=== PATIENT | male | born 1955 | race Caucasian/White ===

== ENCOUNTER → 2023-10-03 10:56 | Outpatient (REF) | payer OTHER, SELFPAY ==
[2023-10-03 13:18] LABS: Blood Urea Nitrogen 32 mg/dl (9-20); Calcium 9.5 mg/dl (8.4-10.2); Carbon Dioxide 22 mmol/L (22-30); Chloride 105 mmol/L (98-107); Glucose 94 mg/dl (70-99); Potassium 4.6 mmol/L (3.5-5.1); Sodium 137 mmol/L (135-145); eGFR > 60.00
== END ==
LOC: HWLAB 10:56
PROVIDERS: ATTENDING PHYSICIAN Thoracic Surgery (Cardiothoracic Vascular Surgery); OTHER PHYSICIAN Internal Medicine Cardiovascular Disease; REFERRING PHYSICIAN Internal Medicine Cardiovascular Disease
DX: I71.21 Aneurysm of the ascending aorta, without rupture (principal); Q23.1 Congenital insufficiency of aortic valve; Z01.818 Encounter for other preprocedural examination
CPT/HCPCS: 36415; 80048

== ENCOUNTER → 2023-10-09 13:27 | Outpatient (REF) | payer OTHER, SELFPAY | LOC: HWRAD 13:27 | PROVIDERS: ATTENDING PHYSICIAN Thoracic Surgery (Cardiothoracic Vascular Surgery); OTHER PHYSICIAN Internal Medicine Endocrinology, Diabetes & Metabolism; REFERRING PHYSICIAN Internal Medicine Cardiovascular Disease | DX: I71.21 Aneurysm of the ascending aorta, without rupture (principal); Z01.818 Encounter for other preprocedural examination; Q23.1 Congenital insufficiency of aortic valve | CPT/HCPCS: 71275; 74174; Q9967 ==

== ENCOUNTER 2023-10-11 07:22 | Day surgery (SDC) | payer OTHER, SELFPAY ==
[2023-10-01 08:39] VITALS: BMI 29.1
--- NOTE | 2023-10-01 14:01 | HPS.HSE ---
Family Physician
-
Family Physician: NOT KNOW UNKNOWN - PT DOES
Chief Complaint
-
Bicuspid aortic valve. Aortic regurgitation.
History of Present Illness
The patient is a 68 year old male presenting today for aortic regurgitation. The patient typically follows Dr. William Alonso of [facility]. He was noted to have an asymptomatic systolic murmur in the Summer of 2022.
He would undergo a transthoracic echocardiogram on 12/31/2022 for murmur assessment. Moderate to severe aortic regurgitation and a dilated aortic root (3.9 cm) and ascending aorta (4.2 cm) were noted. Given these findings, he was referred to
Kong Tran of cardiothoracic surgery here at [facility]. In March 2023, did not feel his aortic valve and aortic aneurysm met criteria for surgical intervention. stated his previous transthoracic echocardiogram could
not definitively rule out bicuspid aortic valve morphology. Because of this, he advised the patient to follow-up with him in 6 months and to obtain a transesophageal echocardiogram for more definitive assessment of his aortic valve and aortic
aneurysm prior to follow-up. Given his next office visit with is October 31, 2023, he will undergo a transesophageal echocardiogram at this time. He denies any current complaints today such as chest pain, shortness of breath, palpitations,
nausea, vomiting, diarrhea, lightheadedness, dizziness, cough, sore throat, or fever.
Medical History
Past Medical History
Past Medical History: Reports Other
Additional Past Medical History:
1. Bicuspid aortic valve.
2. Moderate-severe aortic regurgitation.
3. Mild-moderate tricuspid regurgitation.
4. Hypertension.
5. Borderline hypercholesterolemia.
6. Mild coronary artery disease based on coronary calcium score 01/2023.
7. Dilated aortic root, 3.9 cm.
8. Ascending aortic aneurysm, 4.2 cm.
9. Mild interstitial lung disease.
10. Left lower lobe pulmonary nodule, 3.8 mm, likely benign.
11. Chronic rhinitis.
12. Colon polyps.
13. Osteoarthritis, status post right total knee arthroplasty, 2019, and left total hip arthroplasty 2020.
14. Right quadriceps tendon rupture, status post surgical repair.
15. Remote recurrent dengue fever.
16. Remote yellow fever.
17. Hearing impairment bilaterally.
18. Daily alcohol.
Past Surgical History: Reports Other
Additional Past Surgical History:
1. Right total knee arthroplasty.
2. Left total hip arthroplasty.
3. Right quadriceps tendon repair.
4. Right knee arthroscopy.
5. Right wrist fracture repair.
6. Left shoulder surgery.
7. [place] teeth extraction.
8. Multiple colonoscopies.
Social History
Tobacco: Non-smoker
Alcohol: Daily (Reportedly drinks 1 beer every evening. )
Personal:
Living: Other (He lives with his in a 3 story home. )
Family History
Family History: Not pertinent
Allergies / Home Medications
Allergy/Medication List:
Home medications:
1. Amlodipine 2.5 mg p.o. daily.
2. Ascorbic acid 500 mg p.o. daily.
3. Fish oil 2 capsules p.o. daily.
4. Ibuprofen 400 mg p.o. at bedtime.
Allergies: Opioids.
Review of Systems
-
A 12 point ROS was completed and negative except as noted: Yes
Physical Exam
Vital Signs
Blood pressure 156/77. Heart rate 82. Respirations 18. Pulse ox 98% on room air.
Height 5 feet, 6 inches. Weight 81.7 kg. BMI 29.1.
Physical Exam
General: Well Developed, Well Nourished and No Apparent Distress
HEENT: NormoCephalic, Moist mucous membranes, Atraumatic, PERRLA and Hearing Impaired
Respiratory: Clear
Cardiac: Regular Rhythm and Murmur (Faint systolic )
GI: Soft, Non Tender and Non Distended
Musculoskeletal: Normal Gait & Station
Skin: Warm and Dry
Neuro: AO x 3 and Nonfocal/grossly intact
Laboratory Results
-
EKG 10/01/2023: Normal sinus rhythm. Cannot rule out anterior and inferior infarct.
Transthoracic echocardiogram 12/31/2022: Ejection fraction is 60%. Moderate to severe aortic regurgitation. Mild to moderate tricuspid regurgitation. Dilation of aortic root (3.9 cm) and ascending aorta (4.2 cm).
Impression/Plan
-
IMPRESSION/PLAN:
1. Bicuspid aortic valve and aortic regurgitation: The patient is in need of a transesophageal echocardiogram with Dr. Donaldo Junior on 10/11/2023. The benefits and risks of the procedure have been explained to the patient. The patient
understands these risks and wishes to proceed.
== END 2023-10-11 09:15 | disposition home or self-care (01) ==
LOC: CATH 07:22
PROVIDERS: ATTENDING PHYSICIAN Internal Medicine Cardiovascular Disease
DX: I08.3 Combined rheumatic disorders of mitral, aortic and tricuspid valves (principal); I10 Essential (primary) hypertension; E78.00 Pure hypercholesterolemia, unspecified
CPT/HCPCS: 93312; 93320; 93325; 93005

== ENCOUNTER → 2024-04-29 08:03 | Outpatient (REF) | payer OTHER, SELFPAY | LOC: HWRAD 08:03 | PROVIDERS: ATTENDING PHYSICIAN Otolaryngology Plastic Surgery within the Head & Neck | DX: J32.9 Chronic sinusitis, unspecified (principal) | CPT/HCPCS: 70486 ==

== ENCOUNTER → 2024-10-09 07:56 | Outpatient (REF) | payer OTHER, SELFPAY ==
[2024-10-09 09:55] LABS: Blood Urea Nitrogen 24 mg/dl (9-20); Calcium 9.2 mg/dl (8.4-10.2); Carbon Dioxide 27 mmol/L (22-30); Chloride 108 mmol/L (98-107); Glucose 99 mg/dl (70-99); Potassium 4.7 mmol/L (3.5-5.1); Sodium 139 mmol/L (135-145); eGFR > 60.00
== END ==
LOC: HWRAD 07:56
PROVIDERS: ATTENDING PHYSICIAN Orthopaedic Surgery Hand Surgery; REFERRING PHYSICIAN Thoracic Surgery (Cardiothoracic Vascular Surgery)
DX: M19.011 Primary osteoarthritis, right shoulder (principal); M25.512 Pain in left shoulder; Q23.1 Congenital insufficiency of aortic valve; I71.21 Aneurysm of the ascending aorta, without rupture
CPT/HCPCS: 36415; 73200; 80048

== ENCOUNTER → 2024-10-23 08:43 | Outpatient (REF) | payer OTHER, SELFPAY | LOC: RAD 08:43 | PROVIDERS: ATTENDING PHYSICIAN Thoracic Surgery (Cardiothoracic Vascular Surgery) | DX: Q23.1 Congenital insufficiency of aortic valve (principal); I71.21 Aneurysm of the ascending aorta, without rupture | CPT/HCPCS: 71275; Q9967 ==

== ENCOUNTER → 2024-10-24 07:52 | Outpatient (REF) | payer OTHER, SELFPAY | LOC: RCS 07:52 | PROVIDERS: ATTENDING PHYSICIAN Thoracic Surgery (Cardiothoracic Vascular Surgery) | DX: Q23.1 Congenital insufficiency of aortic valve (principal); I71.21 Aneurysm of the ascending aorta, without rupture | CPT/HCPCS: 93306 ==

== ENCOUNTER → 2024-12-21 09:38 | Outpatient (REF) | payer OTHER, SELFPAY ==
[2024-12-21 10:34] LABS: % Eosinophils 3.5 % (0-6); % Immature Granulocytes 0.4 % (0-0.5); % Lymphocytes 21.5 % (20.5-51.1); % Neutrophils 60.6 % (42.2-75.2); Absolute Basophils 0.1 10^3/uL (0-0.2); Absolute Eosinophils 0.3 10^3/uL (0-0.7); Absolute Lymphocytes 1.5 10^3/uL (1.2-3.4); Absolute Monocytes 0.9 10^3/uL (0.1-0.6); Absolute Neutrophils 4.3 10^3/uL (1.4-6.5); Hematocrit 41.9 % (39.0-52.0); Hemoglobin 14.4 g/dL (13.0-18.0); Mean Corp Hgb Conc. 34.4 g/dL (33.0-37.0); Mean Corpuscular Hgb 31.2 pg (27.0-31.0); Mean Corpuscular Volume 90.7 fL (80.0-94.0); Mean Platelet Volume 10.8 fL (7.4-10.4); Nucleated Red Blood Cells % 0 % (-); Platelet Count 163 10^3/uL (130-400); Red Blood Cell Count 4.62 10^6/uL (4.70-6.10); Red Cell Dist. Width 13.3 % (11.5-14.5); White Blood Cell Count 7.1 10^3/uL (4.8-10.8)
[2024-12-21 14:56] LABS: Blood Urea Nitrogen 32 mg/dl (9-20); Calcium 9.7 mg/dl (8.4-10.2); Carbon Dioxide 19 mmol/L (22-30); Chloride 112 mmol/L (98-107); Glucose 101 mg/dl (70-99); Potassium 4.4 mmol/L (3.5-5.1); Sodium 142 mmol/L (135-145); eGFR > 60.00
== END ==
LOC: RCS 09:38
PROVIDERS: ATTENDING PHYSICIAN Orthopaedic Surgery Hand Surgery; OTHER PHYSICIAN Internal Medicine Cardiovascular Disease
DX: Z01.818 Encounter for other preprocedural examination (principal)
CPT/HCPCS: 36415; 80048; 85025; 93005

== ENCOUNTER → 2025-03-10 13:32 | Outpatient (REF) | payer MEDICARE, OTHER, SELFPAY | LOC: HWRAD 13:32 | PROVIDERS: ATTENDING PHYSICIAN Orthopaedic Surgery; FAMILY PHYSICIAN Nurse Practitioner Family | DX: Z96.642 Presence of left artificial hip joint (principal); M89.8X5 Other specified disorders of bone, thigh | CPT/HCPCS: 73700 ==